=== PATIENT | male | born 1990 | race Caucasian/White ===

== ENCOUNTER 2019-03-21 18:00 | Emergency (ER) | payer SELFPAY ==
[2019-03-21 18:25] VITALS: TEMP 98.4
[2019-03-21] MEDS ORDERED: TETRACAINE HCL 0.5% OPHTH SOL 1 DROP ONE (18:30)
[2019-03-21] MEDS ORDERED: OPHTHALMIC SALT SOLUTION 120 ML BTTL ONE (18:31)
--- NOTE | 2019-03-21 19:36 | ED.PDOC ---
History of Present Illness - General Chief Complaint: Eye Problems Stated Complaint: right eye pain,FB Time Seen by Provider: 03/21/19 18:03 Source: patient Exam Limitations: no limitations - History of Present Illness Initial Comments: the patient's a 29-year-old male presenting to emergency room after having gotten a piece of grass underneath his upper right eyelid toward the lateral aspect. Abdomen present and irritating for about 3 hours prior to arrival. He does have significant conjunctival injection and swelling but time he arrives here. No definite vision changes but he does have difficult time opening his eye. No pain over the cornea. Examination was done after the addition of tetracaine drops. I'm unable to definitively see any foreign body under the eyelid. A sterile cotton swab was soaked in tetracaine and we did do a blind sweep underneath the eyelid without obviously removing any large fragments. We subsequently irrigated the underside of the upper eyelid with 200 cc of normal saline. Subsequently symptoms did improve. Timing/Duration: 1-3 hours Severity: moderate Improving Factors: nothing Worsening Factors: nothing Allergies/Adverse Reactions: Allergies Sulfa Antibiotics Allergy (Verified 03/21/19 18:25) Home Medications: Ambulatory Orders NK 03/21/19 Review of Systems - Review of Systems Constitutional: States: no symptoms reported EENTM: States: see HPI Respiratory: States: no symptoms reported Cardiology: States: no symptoms reported Gastrointestinal/Abdominal: States: no symptoms reported Genitourinary: States: no symptoms reported Musculoskeletal: States: no symptoms reported Skin: States: no symptoms reported Neurological: States: no symptoms reported Endocrine: States: no symptoms reported All other Systems: No Change from Baseline Past Medical History (General) - Patient Medical History Hx Stroke: No Hx Congestive Heart Failure: No Hx Diabetes: No - Vaccination History Hx Tetanus, Diphtheria Vaccination: Yes - 6 years ago Hx Influenza Vaccination: Yes - Social History Hx Tobacco Use: Yes Family Medical History - Family History Father Family History: Unknown Living Status: Unknown Physical Exam - Physical Exam General Appearance: Alert, Other - obviously uncomfortable Eye Exam: right other - see history of present illness., left normal Ears, Nose, Throat: hearing grossly normal, normal ENT inspection, normal pharynx Neck: full range of motion Respiratory: no respiratory distress, no accessory muscle use Cardiovascular/Chest: normal peripheral pulses, no edema, other - egular rate Peripheral Pulses: radial,right: 2+, radial,left: 2+ Rectal Exam: deferred Extremity: normal range of motion, no pedal edema, normal capillary refill 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 we did numb the eye and direct visualization failed to show any foreign body. We did do a sweep underneath the upper eyelid with a cotton-tip swab with tetracaine. this was subsequently followed by irrigating with 200 cc of normal saline. Symptoms did improve subsequently. 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 He can additionally takes some Benadryl at home. This is most likely both a mechanical and allergic conjunctivitis. Ibuprofen will also help reduce discomfort. ER warnings are given for any worsening. Departure - Departure Clinical Impression: Conjunctivitis Qualifiers: Conjunctivitis type: acute Acute conjunctivitis type: atopic Laterality: right Qualified Code(s): H10.11 - Acute atopic conjunctivitis, right eye Foreign body of eye, external, right Qualifiers: Encounter type: initial encounter Qualified Code(s): T15.91XA - Foreign body on external eye, part unspecified, right eye, initial encounter Disposition: Discharge to Home or Self Care Condition: Fair Departure Forms: ED Discharge - Pt. Copy, Patient Portal Self Enrollment Diet: regular diet Activity: increase activity as tolerated Home Medications: Ambulatory Orders NK 03/21/19 Additional Instructions: the patient is a 29-year-old male presenting with the sensation of foreign body, a piece of grass underneath his right upper eyelid for several hours prior to arrival. we did numb the eye and direct visualization failed to show any foreign body. We did do a sweep underneath the upper eyelid with a cotton-tip swab with tetracaine. this was subsequently followed by irrigating with 200 cc of normal saline. Symptoms did improve subsequently. 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 He can additionally takes some Benadryl at home. This is most likely both a mechanical and allergic conjunctivitis. Ibuprofen will also help reduce discomfort. ER warnings are given for any worsening.
[2019-03-21 19:49] VITALS: BP 137/85; O2SAT 98
== END 2019-03-21 19:48 | disposition home or self-care (01) ==
LOC: ER 18:00
DX: T15.91XA Foreign body on external eye, part unspecified, right eye, initial encounter (principal); H10.11 Acute atopic conjunctivitis, right eye; Z87.891 Personal history of nicotine dependence; Z88.2 Allergy status to sulfonamides; Y93.H2 Activity, gardening and landscaping; Y92.9 Unspecified place or not applicable